=== PATIENT | female | born 1980 | race Caucasian/White ===

== ENCOUNTER 2020-10-22 10:50 | Outpatient (CLI) | payer OTHER | END 2020-10-22 10:51 | disposition home or self-care (01) | LOC: LAB 10:50 | PROVIDERS: ATTEND Surgery | DX: Z01.818 Encounter for other preprocedural examination (principal); C50.919 Malignant neoplasm of unspecified site of unspecified female breast; Z20.828 Contact with and (suspected) exposure to other viral communicable diseases | CPT/HCPCS: 36415 ==

== ENCOUNTER 2020-10-26 08:48 | Day surgery (SDC) | payer OTHER ==
[~2020-10-26 08:48] MED LIST: BUPIVACAINE 0.5%-EPI 1:200000 PF 30 ML VIAL ONE; CEFAZOLIN SODIUM IN 0.9 % NACL 0 GM/0 ML BAG IV ONE; LIDOCAINE 1% 50 ML MDV ONE
[2020-10-26] MEDS ORDERED: LACTATED RINGERS 1,000 ML IV ONE ×2 (08:57→12:14)
[2020-10-26] MEDS ORDERED: CEFAZOLIN SODIUM IN 0.9 % NACL 2 GM/100 ML BAG IV ONE (09:11)
--- NOTE | 2020-10-26 09:40 | ANESTHESIA ---
Pre-Anesthesia VS, & Labs - Diagnosis breast cancer - Procedure port placement Vital Signs: Temp Pulse Resp BP Pulse Ox 36.9 C 94 18 135/100 H 98 10/26/20 08:58 10/26/20 08:58 10/26/20 08:58 10/26/20 08:58 10/26/20 08:58 Height: 5 ft 3 in Weight (kg): 101 kg Body Mass Index: 39.4 BMI Classification: Obese - NPO >8 hours - Is Patient ?: No, Waiver signed Home Medications and Allergies Home Medications: Ambulatory Orders No Known Home Medications 10/26/20 No Known Home Medications 10/26/20 Allergies/Adverse Reactions: Allergies Allergy/AdvReac Type Severity Reaction Status Date / Time No Known Drug Allergies Allergy Verified 10/26/20 09:16 Anes History & Medical History - Anesthetic History Anesthesia Complications: reports: No previous complications - Medical History Cardiovascular: reports: None Pulmonary: reports: None Gastrointestinal: reports: None Urinary: reports: None Musculoskeletal: reports: None Endocrine/Autoimmune: reports: None Skin: reports: None Smoking Status: Never smoker History of Cancer?: Yes (breast cancer) - Surgical History Gynecologic: section, Mastectomy, Other Exam General: Alert Dental: WNL Mallampati classification: II Thyromental Distance: less than 4 cm Respiratory: Lungs clear Cardiovascular: Regular rate Plan Anesthesia Type: General, MAC Consent for Procedure(s) Verified and Reviewed: Yes Code Status: Attempt Resuscitation ASA classification: 2-Mild systemic disease Is this case an emergency?: No
[2020-10-26] MEDS ORDERED: LIDOCAINE 1% 50 ML MDV ONE (09:46)
[2020-10-26] MEDS ORDERED: fentaNYL 100 MCG/2 ML VIAL IVP ONE (10:09)
[2020-10-26] MEDS ORDERED: MIDAZOLAM 2 MG/2 ML VIAL IVP ONE (10:09)
[2020-10-26] MEDS ORDERED: KETOROLAC 30 MG/ML VIAL IVP ONE (10:09)
[2020-10-26] MEDS ORDERED: PROPOFOL 200 MG/20 ML VIAL IVP ONE (10:09)
[2020-10-26] MEDS ORDERED: ONDANSETRON 4 MG/2 ML VIAL IVP ONE (10:09)
[2020-10-26] MEDS ORDERED: LIDOCAINE-MPF 2% 5 ML VIAL IM ONE (10:09)
[2020-10-26] MEDS ORDERED: METOCLOPRAMIDE 10 MG/2 ML VIAL IVP PRN (10:24)
[2020-10-26] MEDS ORDERED: MORPHINE 2 MG/ML CARPUJECT IVP PRN (10:24)
[2020-10-26] MEDS ORDERED: HYDROmorphone 0.5 MG/0.5 ML SYRINGE IVP PRN (10:24)
[2020-10-26] MEDS ORDERED: fentaNYL 100 MCG/2 ML VIAL IVP PRN (10:24)
[2020-10-26] MEDS ORDERED: NALOXONE 0.4 MG/ML VIAL IVP PRN (10:24)
[2020-10-26] MEDS ORDERED: ATROPINE ABBOJECT 1 MG/10 ML SYRINGE IVP PRN (10:24)
[2020-10-26] MEDS ORDERED: ePHEDrine 50 MG/ML VIAL IVP PRN (10:24)
[2020-10-26] MEDS ORDERED: ONDANSETRON 4 MG/2 ML VIAL IVP PRN (10:24)
[2020-10-26] MEDS ORDERED: LACTATED RINGERS 1,000 ML IV SCH (11:00)
[2020-10-26] MEDS ORDERED: BUPIVACAINE 0.5%-EPI 1:200000 PF 30 ML VIAL SUBQ ONE (11:29)
[2020-10-26] MEDS ORDERED: LIDOCAINE 1%-EPI 1:100000 30 ML MDV SUBQ ONE (11:30)
--- NOTE | 2020-10-26 12:12 | OPERATIVE REPORT ---
Operative Report - General Procedure Date: 10/26/20 Planned Procedure: PowerPort placement Pre-Op Diagnosis: Left breast cancer Procedure Performed: Left IJ PowerPort placement Post Op Diagnosis: Same - Procedure Note Primary Surgeon: Joyce Anesthesia Provider: Vilma Peterson CRNAs Anesthesia Technique: General LMA, Local Estimated Blood Loss (mL): 20 Indications: Facilitation of chemotherapy Findings: Left IJ PowerPort in good position Complications: Unable to thread the wire through either subclavian vein. - Other Other Information/Narrative: After obtaining informed consent, the patient is brought to the operating room and placed in supine position on the operating table. Following successful induction of sedation with monitored anesthesia care and appropriate padding of all bony prominences, bilateral chest and neck were prepped and draped in the standard surgical fashion. A timeout was held per scope protocol. All elements of the surgical safety checklist were followed before, during, and after the procedure. Following infiltration with local anesthetic to create a field block, the left subclavian vein was accessed in the deltopectoral groove. I was able to access the vein but unable to advance the wire into the subclavian vein without curling. Multiple attempts were made and the wire curled exactly the same way each time we turned our attention to the right side. Again following infiltration with local anesthetic to create a field block at the right subclavian vein was accessed and we had attempted to float the wire into the subclavian vein again I was not able to pass the wire beyond the subclavian internal jugular junction. Multiple attempts were made with no success. At this point we elected to access the left internal jugular vein. This was done by using the ultrasound at the bedside to identify the vein and then under direct vision the vein was accessed and the guidewire passed in to the vein. Fluoroscopy was used to confirm the position of the wire and in the subclavian vein. We anesthetized the existing healed scar in the area around it for placement of the port itself. An incision was created here and carried down thr ough the skin and subcutaneous tissue. A pocket was created with blunt dissection. The port tubing was attached to the tunneling device and passed from the access site of the vein into the pocket. It was trimmed to an appropriate length and the port attached. The port was sewn into place in the pocket. The dilator and introducer were then passed over the J-wire that was in the subclavian vein. The J-wire and dilator were removed leaving only the introducer. The tubing was then passed through the introducer and the introducer cracked and removed per channel lip wetter's directions. The port was then checked for function and flushed and candy easily. Additional local anesthetic was applied to the chest wall. The port pocket was closed with interrupted Vicryl sutures and Monocryl stitches were placed in both skin incision sites. All sponge, needle, and instrument counts were correct at the conclusion of the case. Chest x-ray in the postanesthesia care unit revealed the port in good p osition in the superior vena cava without evidence of pneumothorax.
[2020-10-26] MEDS ORDERED: HYDROmorphone 0.5 MG/0.5 ML SYRINGE ONE (12:33)
[2020-10-26 12:50] VITALS: BP 105/81
--- NOTE | 2020-10-26 12:50 | XRAY Report ---
PROCEDURE: Chest for Line Placement INDICATIONS: PORT PLACEMENT TECHNIQUE: One view of the chest was acquired. COMPARISON: None FINDINGS: Surgical changes and devices: Left chest wall Port-A-Cath with tip projecting over the aortic arch. R ight axillary surgical clips. Lungs and pleura: No pleural effusions or pneumothorax. Lungs are clear. Mediastinum: Mediastinal contours appear normal. Heart size is normal. Bones and chest wall: No suspicious bony lesions. Overlying soft tissues appear unremarkable. IMPRESSION: Status post placement of left chest wall Port-A-Cath. Tip projects over the left aortic arch and mat ot be definitively localized. Tip may be intra-arterial or could be within the distal left brachiocep halic vein. Reviewed by: Lori Kessler MD, PhD on 10/26/2020 12:49 PM PST Approved by: Lori Kessler MD, PhD on 10/26/2020 12:49 PM PST Station ID: [id number]
[2020-10-26] MEDS ORDERED: oxyCODONE 5 MG TABLET ONE (12:56)
--- NOTE | 2020-10-26 14:35 | ANESTHESIA POST OP EVALUATION ---
Anesthesia Post Eval - Post Anesthesia Eval Vitals: Last Vital Signs Temp 36.6 C 10/26/20 12:30 Pulse 87 10/26/20 12:49 Resp 19 10/26/20 12:49 BP 105/81 H 10/26/20 12:49 Pulse Ox 97 10/26/20 12:49 CV Function Including HR & BP: positive: Stable Pain Control: positive: Satisfactory Nausea & Vomiting: positive: Negative Mental Status: positive: Baseline Respiratory Status: Airway Patent Hydration Status: Satisfactory Anesthesia Complications: positive: None
--- NOTE | 2020-10-26 16:43 | XRAY Report ---
PROCEDURE: OR C-Arm Procedure INDICATIONS: PORT PLACEMENT TECHNIQUE: A single fluoroscopic image was provided. COMPARISON: None. FINDINGS: Single image demonstrates a left sided catheter overlying the expected course of the internal jugular vein with distal tip projecting over the distal SVC/right atrial junction. It is coiled at the dista l aspect. IMPRESSION: Coiled distal appearance of left-sided central venous catheter, which may contain both catheter and w naeem. Recommend repeat imaging after wire removal for final positioning evaluation. L Reviewed by: Yi Hoskins MD on 10/26/2020 4:42 PM PST Approved by: Yi Hoskins MD on 10/26/2020 4:42 PM PST Station ID: [id number]
== END 2020-10-26 08:49 | disposition home or self-care (01) ==
LOC: SDS 08:48
PROVIDERS: ATTEND Surgery
DX: C50.912 Malignant neoplasm of unspecified site of left female breast (principal); E66.9 Obesity, unspecified; Z68.39 Body mass index [BMI] 39.0-39.9, adult
CPT/HCPCS: 36561; 71045; A9270; C1788; J0690; J1170; J7120; 81025

== ENCOUNTER 2021-01-29 18:32 | Outpatient (CLI) | payer OTHER | END 2021-01-29 18:33 | disposition home or self-care (01) | LOC: COV 18:32 | PROVIDERS: ATTEND Surgery | DX: Z01.812 Encounter for preprocedural laboratory examination (principal); C50.912 Malignant neoplasm of unspecified site of left female breast; Z20.822 Contact with and (suspected) exposure to COVID-19 ==

== ENCOUNTER 2021-02-01 07:50 | Day surgery (SDC) | payer OTHER ==
[~2021-02-01 07:50] MED LIST changes: -BUPIVACAINE 0.5%-EPI 1:200000 PF 30 ML VIAL ONE; -CEFAZOLIN SODIUM IN 0.9 % NACL 0 GM/0 ML BAG IV ONE; -LIDOCAINE 1% 50 ML MDV ONE; +ceFAZolin 2 GM/50 ML 2 GM/50 ML BAG IV ONE
[2021-02-01] MEDS ORDERED: LACTATED RINGERS 1,000 ML IV ONE ×3 (08:22→14:14)
[2021-02-01] MEDS ORDERED: LIDOCAINE 1%-EPI 1:100000 20 ML MDV ONE (08:41)
[2021-02-01] MEDS ORDERED: BUFFERED LIDOCAINE 10 ML SYRINGE ONE (08:41)
[2021-02-01] MEDS ORDERED: ALPRAZolam 0.25 MG TABLET PO ONE (08:56)
[2021-02-01] MEDS ORDERED: BUPIVACAINE 0.5% PF 30 ML VIAL ONE ×2 (09:05→12:42)
[2021-02-01] MEDS ORDERED: LIDOCAINE 2%-EPI 1:100000 20 ML MDV ONE ×2 (09:06→12:42)
--- NOTE | 2021-02-01 09:11 | ANESTHESIA ---
Pre-Anesthesia VS, & Labs - Diagnosis breast cancer - Procedure L breast lumpectomy with sentinel node biopsy Vital Signs: Temp Pulse Resp BP Pulse Ox 36.2 C L 108 H 18 126/87 H 98 02/01/21 08:00 02/01/21 08:00 02/01/21 08:00 02/01/21 08:00 02/01/21 08:00 Height: 5 ft 3 in Weight (kg): 104 kg Body Mass Index: 40.6 BMI Classification: Morbidly Obese - NPO >8 hours - Is Patient ?: No Home Medications and Allergies Allergies/Adverse Reactions: Allergies Allergy/AdvReac Type Severity Reaction Status Date / Time No Known Drug Allergies Allergy Verified 02/01/21 08:11 Anes History & Medical History - Anesthetic History Family history of Anesthesia Complications: Denies Family history of Malignant Hyperthermia: Denies - Medical History Cardiovascular: reports: None Pulmonary: reports: None Gastrointestinal: reports: None Urinary: reports: None Musculoskeletal: reports: None Endocrine/Autoimmune: reports: None Skin: reports: None Smoking Status: Never smoker - Surgical History General: reports: Other Gynecologic: reports: section Exam General: Alert Dental: WNL Mouth Openin Fingerbreadth Neck Mobility: Normal Mallampati classification: II Thyromental Distance: 4-6 cm Respiratory: Lungs clear Cardiovascular: Regular rate Abdomen: Normal bowel sounds Extremities: No clubbing Neurological: Normal gait Mental/Cognitive Status: Alert/Oriented X3 Cognitive Status: Within normal limits Plan Anesthesia Type: General, MAC Consent for Procedure(s) Verified and Reviewed: Yes Code Status: Attempt Resuscitation ASA classification: 2-Mild systemic disease Is this case an emergency?: No
[2021-02-01] MEDS ORDERED: ePHEDrine 50 MG/ML VIAL IVP PRN (09:12)
[2021-02-01] MEDS ORDERED: ONDANSETRON 4 MG/2 ML VIAL IVP PRN ×2 (09:12→13:31)
[2021-02-01] MEDS ORDERED: fentaNYL 100 MCG/2 ML VIAL IVP PRN (09:12)
[2021-02-01] MEDS ORDERED: MORPHINE 2 MG/ML CARPUJECT IVP PRN (09:12)
[2021-02-01] MEDS ORDERED: ATROPINE ABBOJECT 1 MG/10 ML SYRINGE IVP PRN (09:12)
[2021-02-01] MEDS ORDERED: HYDROmorphone 0.5 MG/0.5 ML SYRINGE IVP PRN (09:12)
[2021-02-01] MEDS ORDERED: METOCLOPRAMIDE 10 MG/2 ML VIAL IVP PRN (09:12)
[2021-02-01] MEDS ORDERED: NALOXONE 0.4 MG/ML VIAL IVP PRN (09:12)
[2021-02-01] MEDS ORDERED: LACTATED RINGERS 1,000 ML IV SCH (10:00)
[2021-02-01] MEDS ORDERED: fentaNYL 100 MCG/2 ML VIAL ONE ×2 (10:38→12:01)
[2021-02-01] MEDS ORDERED: MIDAZOLAM 2 MG/2 ML VIAL ONE (10:38)
[2021-02-01] MEDS ORDERED: PROPOFOL 200 MG/20 ML VIAL IVP ONE ×2 (10:39→11:48)
[2021-02-01] MEDS ORDERED: LIDOCAINE-MPF 2% 5 ML VIAL ONE (10:39)
[2021-02-01] MEDS ORDERED: BUPIVACAINE 0.5% PF 30 ML VIAL SUBQ ONE (11:40)
[2021-02-01] MEDS ORDERED: LIDOCAINE 2%-EPI 1:100000 20 ML MDV SUBQ ONE (11:40)
[2021-02-01] MEDS ORDERED: ONDANSETRON 4 MG/2 ML VIAL ONE (11:42)
[2021-02-01] MEDS ORDERED: DEXAMETHASONE 4 MG/ML VIAL ONE (11:42)
[2021-02-01] MEDS ORDERED: HYDROmorphone 1 MG/ML CARPUJECT ONE ×2 (12:22→13:57)
[2021-02-01] MEDS ORDERED: IBUPROFEN 600 MG TABLET PO PRN (13:31)
[2021-02-01] MEDS ORDERED: oxyCODONE 5 MG TABLET PO PRN (13:31)
[2021-02-01] MEDS ORDERED: ACETAMINOPHEN 325 MG TABLET PO PRN (13:31)
--- NOTE | 2021-02-01 13:31 | OPERATIVE REPORT ---
Operative Report - General Planned Procedure: Left breast lumpectomy and sentinel node biopsy after needle localization and mapping Pre-Op Diagnosis: Left breast cancer status post neoadjuvant chemotherapy Procedure Performed: Left breast lumpectomy and sentinel node biopsy following needle localization and mapping Post Op Diagnosis: Left breast cancer status post neoadjuvant chemotherapy - Procedure Note Primary Surgeon: Joyce Anesthesia Provider: MIGUEL Esparza Pathology: 1. Left breast initial specimen with wire 2. Additional lateral margin 3. Additional anterior margin 4. [place] node #1 5. [place] node #2 Estimated Blood Loss (mL): 50 Findings: [place] node #1 with 10-second target count of 26,883 [place] node #2 with 10-second target count of 15,989 Background of the axilla 18 Background in the room 0 Complications: None apparent - Other Other Information/Narrative: After obtaining informed consent, the patient was brought to the operating room and placed in the supine position on the operating table. Following successful induction of general endotracheal anesthesia, appropriate padding of all bony prominences, and placement of appropriate monitors, the left breast was prepped and draped in the standard surgical fashion. A timeout was held per scope protocol. All elements of the surgical safety checklist were followed before, during, and after the procedure. We began the procedure with a sentinel node dissection. The site of the brightest node had been marked in radiology with 2 skin markers. The neoprobe was used to identify the site of greatest uptake at level 2 in the patient's axilla. An incision was created over this area of uptake and carried through the skin and subcutaneous tissue to enter the axillary node packet. The first sentinel node was identified with difficulty and was notably tiny in size. It was carefully dissected free from surrounding stop structures sharply, all lymphatics and vasculature were addressed with clips prior to division. The node was liberated into the field. 10-second counts are recorded. Survey of the axilla revealed continued high uptake. A second sentinel node was identified just medial to the first. Again it was addressed in the same manner. It was gently retracted and sharply freed from the surrounding structures. All lymphatics and vasculature were dressed with hemoclips and the node was liberated. It was delivered into the field and a 10-second count was obtained. Survey of the axilla did not reveal any remaining areas of increased uptake. The axilla was examined for hemostasis. It was irrigated with warm water and aspirated free of fluid and particulate matter. Background in the axilla was checked and found to be 18. Background in the room was 0. The axillary incision was then closed in 2 layers with Vicryl and Monocryl sutures. We turned our attention to the left breast mass. I reviewed the MRI and noted the area of uptake on the study was quite near to the skin of the upper inner portion of the left breast. For this reason, I elected to remove an ellipse of skin with the primary specimen. The area over the mass and in the upper inner quadrant of the breast was infiltrated with a mixture of local anesthetics to cry to field block. An incision was then created and the wire and associated mass carefully dissected sharply from the dermis anteriorly and from the muscle posteriorly. Upon delivering the mass into the field, the wire appeared near to the lateral aspect of the specimen. For this reason an additional lateral margin was obtained. Both of these specimens were submitted for radiograph. It was notable that the wire was obtained but not the clip. The clip and the original film was slightly posterior to the wire. For this reason we went back and obtained an anterior portion of tissue the entire length of the specimen to create another margin. This was delivered into the field and marked for orientation. It was submitted for specimen radiograph and found to contain the clip left in place at the time of pre-treatment biopsy. The wound was checked for hemostasis. The patient was noted to have significant platelet bleeding from the entire raw surface of the breast. This was treated by suturing the 2 surfaces of the breast together with 2-0 Vicryl suture and small areas of bleeding were treated with Bovie cautery. A single piece of Surgicel was placed up against the surface of the muscle. The wound was irrigated again with warm water. The wound was then closed in 2 layers with Vicryl and Monocryl sutures. All sponge, needle, and instrument counts were correct at the conclusion of the case. The patient was let awakened anesthesia without difficulty and taken to the postanesthesia care unit in good condition.
[2021-02-01] MEDS ORDERED: BUFFERED LIDOCAINE 10 ML SYRINGE IU ONE (14:07)
[2021-02-01] MEDS ORDERED: IBUPROFEN 600 MG TABLET PO ONE (14:40)
[2021-02-01] MEDS ORDERED: ACETAMINOPHEN 325 MG TABLET PO ONE (14:40)
[2021-02-01 14:46] VITALS: BP 126/95
--- NOTE | 2021-02-01 15:04 | ANESTHESIA POST OP EVALUATION ---
Anesthesia Post Eval - Post Anesthesia Eval Vitals: Last Vital Signs Temp 36.1 C L 02/01/21 14:31 Pulse 114 H 02/01/21 14:44 Resp 16 02/01/21 14:44 BP 126/95 H 02/01/21 14:44 Pulse Ox 95 02/01/21 14:44 CV Function Including HR & BP: positive: Stable Pain Control: positive: Satisfactory Nausea & Vomiting: positive: Negative Mental Status: positive: Baseline Respiratory Status: Airway Patent Hydration Status: Satisfactory Anesthesia Complications: positive: None
--- NOTE | 2021-02-01 16:11 | Nuclear Medicine Report ---
PROCEDURE: Lymph Node Scintigraphy INDICATIONS: LEFT BREAST CA RADIOPHARMACEUTICAL: 0.25 mCi Millipore filtered Tc-99m sulfur colloid. TECHNIQUE: The area around the nipple was prepped and draped in a sterile fashion. Tc-99m sulfur colloid was in jected intra-dermally in the outer edge of the areola in the left breast. Images were obtained subse quently. A body contour outline was obtained. FINDINGS: There is uptake demonstrated within a few lymph nodes in the ipsilateral left axilla level 1 as well as focal uptake within the region of a left internal mammary node. These are marked on the skin and t he images for referring physician. IMPRESSION: Administration of radiotracer into the left breast periareolar region for intra-operativ e sentinel lymph node localization. Reviewed by: Derian Huffman MD on 02/01/2021 4:09 PM PDT Approved by: Derian Huffman MD on 02/01/2021 4:09 PM PDT Station ID: [id number]
--- NOTE | 2021-02-02 12:49 | Mammography Report ---
SPECIMEN LEFT BREAST: 02/01/2021 CLINICAL: Left breast specimen. Correlation is made to exam dated: 02/01/2021 localization - [facility]. A surgical biopsy specimen was imaged for the previous biopsy site located in the left breast at 10 o'clock posterior depth. IMPRESSION: SPECIMEN The imaged specimen includes a biopsy clip and the distal portion of the localization wire. This exam was interpreted at Station ID: [id number]. Yi Hoskins M.D. [facility]/:02/01/2021 15:31:22 BI-RADS CATEGORY: () - Unspecified - other recall n/a LATERALITY: (B)
--- NOTE | 2021-02-02 13:24 | Mammography Report ---
MAMMOGRAPHY GUIDED WIRE LOCALIZATION LEFT BREAST: 02/01/2021 CLINICAL: Left Breast Wire Localization. Correlation is made to exams dated: 09/25/2020 mammogram, 09/18/2020 mammogram - [facility], 09/07/2020 mammogram, and 09/05/2019 mammogram - [facility]. A wire localization using mammography guidance was performed for the irregular shaped mass located in the left breast at 10 o'clock posterior depth. This was described on the previous mammography and u ltrasound reports. The skin was prepped in the usual manner. Topical and local anesthetic was admin istered to the access site. The localization was approached from the medial aspect. A J-hook wire w as inserted into the targeted area under mammography guidance. A sterile dressing was applied to the access site. IMPRESSION: WIRE LOCALIZATION Wire localization for the mass in the left breast at 10 o'clock posterior depth was successful. This exam was interpreted at Station ID: [id number]. Yi Hoskins M.D. [facility]/:02/01/2021 15:30:09 BI-RADS CATEGORY: () - Unspecified - other recall n/a LATERALITY: (B)
== END 2021-02-01 07:51 | disposition home or self-care (01) ==
LOC: SDS 07:50
PROVIDERS: ATTEND Surgery
PROC: 07B60ZX Excision of Left Axillary Lymphatic, Open Approach, Diagnostic (ICD-10-PCS; 2021-02-01)
PROC: 0HBU0ZZ Excision of Left Breast, Open Approach (ICD-10-PCS; principal; 2021-02-01 10:45)
DX: C50.212 Malignant neoplasm of upper-inner quadrant of left female breast (principal); F17.210 Nicotine dependence, cigarettes, uncomplicated; E66.9 Obesity, unspecified; Z68.41 Body mass index [BMI] 40.0-44.9, adult; Z79.899 Other long term (current) drug therapy; Z85.3 Personal history of malignant neoplasm of breast; Z92.3 Personal history of irradiation
CPT/HCPCS: 19281; 19301; 38525; 76098; 78195; A9270; J0690; J1170; J7120